=== PATIENT | female | born 1990 | race American Indian/Alaskan Native ===

== ENCOUNTER 2017-05-29 11:08 | Emergency (ER) | payer SELFPAY ==
[2017-05-29 11:24] VITALS: BP 133/81
--- NOTE | 2017-05-29 12:25 | XRay Report ---
RIGHT TIBIA AND FIBULA RADIOGRAPHS INDICATION: Fall, right lower leg injury. COMPARISON: 04/11/2014 right knee radiographs. FINDINGS: AP and lateral right tibia and fibula radiographs demonstrate intact bones. Unremarkable soft tissues. Included knee and ankle articulations appear unremarkable as well. CONCLUSION: Normal exam. Thank you for the opportunity to participate in this patient's care.
[2017-05-29] MEDS ORDERED: MOTRIN PO ONE (14:17)
--- NOTE | 2017-05-29 18:48 | Emergency Department Report ---
Entered by IZABEL BENNETT, acting as scribe for KARINA DANIELS NP. ED Lower Extremity HPI - General Chief Complaint: Extremity Injury, Lower Stated Complaint: ABRASION TO RT LEG Time Seen by Provider: 05/29/17 12:54 Source: patient Mode of arrival: Wheelchair Limitations: Physical Limitation - History of Present Illness Initial Comments: This is a 26 year old female, nontoxic, well nourished in appearance, no acute signs of distress, presents to ED with c/o pain to right lower leg/gaona. Patient states she fell into a bale sewer/pot hole coming [place] a [place] last night around 2100. Patient stated was [facility] was on seen after incident but denies going to a hospital. Patient stated she came in today becasue she thinks she broke her "leg". Patient reports controlled bleeding but denies swelling, redness, numbness, tingling, deformity, and trauma to leg. Patient denies any CP, SOB, head trauma, LOC, fever, chills, headache. Patient notes last Tetanus shot was July 28, 2016. Patient denies any allergies. Denies PMH. MD Complaint: leg injury (lower leg ), fall -: Gradual, Last night Time: 21:00 Injury: Leg: Right Type of Injury: unknown Place: street/outdoors Severity: moderate Severity scale (0 -10): 4 Improves With: nothing Worsens With: weight bearing, movement, palpation Context: fall Associated Symptoms: able to partially bear weight, ambulatory. denies: snap/ pop sensation, swelling, numbness, tingling, unable to bear weight Treatments Prior to Arrival: bandage - Related Data Previous Rx's Medication Instructions Recorded Last Taken Type Cephalexin [Keflex] 500 mg PO Q12HR 5 Days 05/29/17 Unknown Rx Ibuprofen [Motrin 600 MG tab] 600 mg PO Q8H PRN #20 tablet 05/29/17 Unknown Rx Allergies Allergy/AdvReac Type Severity Reaction Status Date / Time No Known Allergies Allergy Verified 05/29/17 11:18 ED Review of Systems Comment: All other systems reviewed and negative Constitutional: denies: chills, fever Eyes: denies: eye pain, eye discharge, vision change ENT: denies: ear pain, throat pain Respiratory: denies: cough, shortness of breath, wheezing Cardiovascular: denies: chest pain, palpitations Endocrine: no symptoms reported Gastrointestinal: denies: abdominal pain, nausea, vomiting, diarrhea Genitourinary: denies: urgency, dysuria, discharge Musculoskeletal: denies: back pain, joint swelling, arthralgia Skin: denies: rash, lesions Neurological: denies: headache, weakness, numbness, paresthesias Psychiatric: denies: anxiety, depression Hematological/Lymphatic: denies: easy bleeding, easy bruising ED Past Medical Hx - Past Medical History Previous Medical History?: No - Surgical History Past Surgical History?: No - Social History Smoking Status: Light Tobacco Smoker Substance Use Type: None - Medications Home Medications: Home Medications Medication Instructions Recorded Confirmed Last Taken Type Cephalexin [Keflex] 500 mg PO Q12HR 5 Days 05/29/17 Unknown Rx Ibuprofen [Motrin 600 MG tab] 600 mg PO Q8H PRN #20 tablet 05/29/17 Unknown Rx ED Physical Exam - General Limitations: Physical Limitation General appearance: alert, in no apparent distress - Head Head exam: Present: atraumatic, normocephalic, normal inspection - Eye Eye exam: Present: normal appearance, PERRL, EOMI. Absent: scleral icterus, conjunctival injection, nystagmus, periorbital swelling, periorbital tenderness Pupils: Present: normal accommodation. Absent: irregular - ENT ENT exam: Present: normal exam, normal orophraynx, mucous membranes moist, TM's normal bilaterally, normal external ear exam - Neck Neck exam: Present: normal inspection, full ROM. Absent: tenderness, meningismus, lymphadenopathy, thyromegaly - Respiratory Respiratory exam: Present: normal lung sounds bilaterally. Absent: respiratory distress, wheezes, rales, rhonchi, stridor, chest wall tenderness, accessory muscle use, decreased breath sounds, prolonged expiratory - Cardiovascular Cardiovascular Exam: Present: regular rate, normal rhythm, normal heart sounds. Absent: bradycardia, tachycardia, irregular rhythm, systolic murmur, diastolic murmur, rubs, gallop - GI/Abdominal GI/Abdominal exam: Present: soft, normal bowel sounds - Rectal Rectal exam: Present: deferred - Extremities Exam Extremities exam: Present: normal inspection, full ROM, normal capillary refill. Absent: tenderness, pedal edema, joint swelling, calf tenderness - Expanded Lower Extremity Exam Right Hip exam: Present: normal inspection, full ROM, external rotation, internal rotation, pelvic stability. Absent: tenderness, swelling, abrasion, laceration , ecchymosis, deformity, crepidus, dislocation, erythema, shortening Upper Leg exam: Present: normal inspection, full ROM. Absent: tenderness, swelling, abrasion, laceration, ecchymosis, deformity, crepidus, dislocation, erythema Knee exam: Present: normal inspection, full ROM, full knee extension. Absent: tenderness, swelling, abrasion, laceration, ecchymosis, deformity, crepidus, dislocation, erythema, effusion, pain w/ pronation/supination, posterior draw sign, pain/laxity with valgus, pain/laxity with varus Lower Leg exam: Present: normal inspection, full ROM, tenderness, abrasion ( 0.5cm superficial puncture wound present). Absent: swelling, laceration, ecchymosis, deformity, crepidus, dislocation, erythema, palpable cord, Mirna's sign Ankle exam: Present: normal inspection, full ROM. Absent: tenderness, swelling , abrasion, laceration, ecchymosis, deformity, crepidus, dislocation, erythema, anterior draw sign Foot/Toe exam: Present: normal inspection, full ROM. Absent: tenderness, swelling, abrasion, laceration, ecchymosis, deformity, crepidus, dislocation, erythema, amputation, puncture wound, foreign body, calcaneal tenderness, tenderness at base of 5th metatarsal, nail avulsion, subungual hematoma Neuro vascular tendon exam: Present: no vascular compromise. Absent: pulse deficit, abnormal cap refill, motor deficit, sensory deficit, tendon deficit, extremity cold to touch, pallor, abnormal 2-point discrimination, decreased fine /light touch, foot drop, peroneal nerve deficit, significant pain with passive ROM of distal joint Gait: Positive: observed and limited by pain 1 - abrasion noted - Back Exam Back exam: Present: normal inspection, full ROM. Absent: tenderness, CVA tenderness (R), CVA tenderness (L), muscle spasm, paraspinal tenderness, vertebral tenderness, rash noted - Neurological Exam Neurological exam: Present: alert, oriented X3, CN II-XII intact, normal gait, reflexes normal - Psychiatric Psychiatric exam: Present: normal affect, normal mood - Skin Skin exam: Present: warm, dry, intact, normal color. Absent: rash ED Course Vital Signs 05/29/17 11:20 Temperature 98.7 F Pulse Rate 72 Respiratory 16 Rate Blood Pressure 133/81 O2 Sat by Pulse 100 Oximetry - Reevaluation(s) Reevaluation #1: 05/29/17 14:04 Patient is able to speak in full sentences with no signs of distress noted. ED Lower Extremity MDM - Medical Decision Making Ed course: This is a 26-year-old that presents with right foot abrasion 1- patient was examined by myself. Xray has been obtained with normal findings. Dictated by radiologist. Patient was notified of xray findings. 2- I cleaned the abrasion with normal saline and soap. I then applied a sterile 4x4 with tape. I instructed patient to follow-up with primary care doctor in 3- 5 days or if symptoms such as numbness, tingling, fever, chills, headache, SOB, chest pain, or worsening of symptoms to return back to the emergency department. 3- Patient received Keflex at the time of d/c 4-At time time of discharge, the patient does not seem toxic or ill in appearance. No acute signs of distress noted. Patient agrees to discharge treatment plan of care. No further questions noted by the patient. 5- patient was instructed to RIce therapy ED Disposition Clinical Impression: Abrasion Contusion Qualifiers: Encounter type: initial encounter Contusion area: lower leg Laterality: right Qualified Code(s): S80.11XA - Contusion of right lower leg, initial encounter Disposition: DC-01 TO HOME OR SELFCARE Is pt being admited?: No Does the pt Need Aspirin: No Condition: Stable Instructions: Contusion in Adults (ED), Abrasion (ED), Cephalexin (By mouth), Ibuprofen (By mouth), RICE Therapy (ED) Additional Instructions: follow-up with primary care doctor in 3-5 days or if symptoms such as numbness, tingling, fever, chills, headache, SOB, chest pain, or worsening of symptoms to return back to the emergency department. Rest, elevate, ice extremity. Take full course of antibiotic was prescribed. Prescriptions: Cephalexin [Keflex] 500 mg PO Q12HR 5 Days Ibuprofen [Motrin 600 MG tab] 600 mg PO Q8H PRN #20 tablet PRN Reason: Pain Referrals: PRIMARY CARE, [Primary Care Provider] - 3-5 Days VIVIANE WILKINS JR, MD [Staff Physician] - 3-5 Days XOCHITL TROY MD [Staff Physician] - 3-5 Days [facility] [Outside] - 3-5 Days [facility] [Outside] - 3-5 Days Forms: Work/School Release Form(ED) This documentation as recorded by the SABRINA miranda PEARL,accurately reflects the service I personally performed and the decisions made by ,KARINA DANIELS, [employer].
== END 2017-05-29 14:46 | disposition home or self-care (01) ==
LOC: ED 11:08
DX: S80.11XA Contusion of right lower leg, initial encounter (principal); S80.811A Abrasion, right lower leg, initial encounter; W18.30XA Fall on same level, unspecified, initial encounter; Y93.89 Activity, other specified; Y92.9 Unspecified place or not applicable; Y99.9 Unspecified external cause status
CPT/HCPCS: 99284